=== PATIENT | female | born 1965 | race African-American/Black ===

== ENCOUNTER 2017-08-20 12:37 | Observation (INO) | payer MEDICARE, MEDICAID ==
[2017-08-20] MEDS ORDERED: diphenhydrAMINE 50 MG/ML VIAL ONE (13:13)
[2017-08-20] MEDS ORDERED: Metoclopramide HCl 10 MG/2 ML VIAL ONE (13:13)
[2017-08-20 13:48] LABS: Anion Gap 14 mmol/L (10-20); BUN (Urea Nitrogen) 16 mg/dL (7.0-18.7); Calc. Creatinine Clearance 0 mL/min (70-130); Carbon Dioxide 24 mmol/L (22-29); Chloride 109 mmol/L (98-107); Estimated GFR-MDRD 65
[2017-08-20 14:19] LABS: #Basophils 0.1 thou/uL (0.0-0.2); #Eosinphils 0.1 thou/uL (0.0-0.7); #Lymphocytes 0.8 thou/uL (1.20-3.40); #Monocytes 0.4 thou/uL (0.11-0.59); #Neutrophils 2.6 thou/uL (1.40-6.50); %Basophils 2.7 % (0.0-1.0); %Eosinophils 1.4 % (0.0-10.0); %Lymphocytes 19.5 % (21.0-51.0); %Monocytes 10.6 % (0.0-10.0); Hematocrit 31.6 % (36.0-47.0); Mean Platelet Volume 10.4 fL (7.4-10.4); Red Blood Cell (RBC) Count 3.98 mill/uL (4.20-5.40); White Blood Cell (WBC) Count 3.9 thou/uL (4.8-10.8)
[2017-08-20 14:20] LABS: Anisocytosis SLIGHT = 6-15 cells (100X) (0-5/hpf); Hypochromia SLIGHT = 6-15 cells (100X) (0-5/hpf); Microcytosis SLIGHT = 6-15 cells (100X) (0-5/hpf); Ovalocytes SLIGHT = 2-5 cells (100X) (0-1/hpf); Target Cells SLIGHT = 2-5 cells (100X) (0-1/hpf)
[2017-08-20] MEDS ORDERED: Lorazepam 2 MG/ML VIAL ONE (14:51)
--- NOTE | 2017-08-20 15:02 | CT ---
CT HEAD NONCONTRAST: History: Headache for one month. Comparison: 03-05-07 FINDINGS: Subtle hyperdensity and thickening involves the posterior falx and the tentorium. There is no mass ef fect or shift of midline structures. Ventricles appear normal in size, shape, and position. Visualize d paranasal sinuses remain well aerated. IMPRESSION: 1. Hyperdensity involving the tentorium and posterior falx. A small amount of subdural hemorrhage cou ld cause this appearance, although other causes are favored, possibly related to inflammation. There is no mass effect. 2. Please consider short term follow up with MRI of the brain for better characterization. Findings were called to Dr. Hough in the [facility] at 1349 hours. Code CR POS: [facility]
[2017-08-20 15:14] LABS: Bilirubin Negative (Negative); Blood, Urine Negative (Negative); Glucose, Urine (Dipstick) Negative (Negative); Ketone, Urine Negative (Negative); Nitrite Negative (Negative); Protein, Urine (Dipstick) Negative (Neg-Trace); Urobilinogen 0.2 mg/dL (0.2-1.0)
--- NOTE | 2017-08-20 16:51 | MRI ---
MRI OF BRAIN PERFORMED WITH AND WITHOUT CONTRAST ENHANCEMENT 08/20/17 HISTORY: Headache. Hyperdense appearing tentorium and posterior falx noted on CT raising the possibility of some subdura l blood. Ventricular and cisternal system is within normal limits. There is some minimal areas of T2 and FLAIR hyperintensity within the white matter which were probably age related. On a gradient sequence, I do not see any evidence for hemorrhage. Postcontrast images show no abnorma l enhancement in the region of the tentorium. Diffusion weighted sequence shows no signs of any acute infarct. Some mucosal change within the ethmoid air cells and mastoid air cells. IMPRESSION: No acute intracranial abnormalities. POS: [facility]
[2017-08-20] MEDS ORDERED: Metoclopramide HCl 10 MG/2 ML VIAL IVP PRN (17:47)
[2017-08-20] MEDS ORDERED: Dexamethasone 10 MG in Sodium Chloride 0.9% 50 ML IVPB SCH (18:00)
--- NOTE | 2017-08-20 18:46 | HP ---
HISTORY OF PRESENT ILLNESS: Mrs. Vasquez is a 51-year-old black woman. She came to this facility fro [facility] ER where she was evaluated for severe migraine which she has been having for over last wed or so. She was seen by her neurologist as an outpatient, did not respond to therapy and her condi tion has been getting worse. She has been admitted for management. PAST MEDICAL HISTORY: Remarkable for migraine. She has been having migraine for a long time. She i s also known to have any history of lupus and she has end-stage renal disease. She is status post ki dney transplant. She denies diabetes, denies heart disease, denies lung disease, denies hypertension . PAST SURGICAL HISTORY: Remarkable for dialysis access placement, kidney transplant and also she had thymectomy due to myasthenia gravis. She currently is free of myasthenia gravis. ALLERGIES: She has allergy to SULFA, FLAGYL, Tramadol and GoLYTELY. SOCIAL HISTORY: She denies any history of cigarette smoking. Denies ETOH abuse. Denies drug abuse. FAMILY HISTORY: Reviewed and is not contributory. MEDICATIONS: Prior to admission, she was on Ambien, tacrolimus, CellCept and calcitriol. REVIEW OF SYSTEMS: Constitutional: She denies any fever. Denies any weakness. HEENT: She has bee n having severe migraine as mentioned earlier. Denies ocular pain. Denies sore throat. Denies rhin orrhea. Denies epistaxis. Neck: No neck pain, no neck stiffness. Cardiovascular: No shortness of breath. No chest pain. Pulmonary: No coughing. Gastrointestinal: Admits to nausea, vomiting, no diarrhea, no abdominal pain. Genitourinary: No dysuria, no hematuria. Endocrinology: No heat or c old intolerance. No polyuria, polydipsia or polyphagia. Musculoskeletal: Denies arthralgia. Hemat ology: No abnormal bleeding, no ecchymosis. Lymphatics: No palpable lymphadenopathy, no painful ly mphadenopathy. Skin: No rash, no itching. Allergies: No hayfever. Neurological: No seizure. Ps ychiatric: No anxiety. No depression. PHYSICAL EXAMINATION: GENERAL: At the current time, she is alert, oriented, in no acute distress. LATEST VITAL SIGNS: Show a temperature of 98.4, pulse rate 78, respiratory rate is 16, blood pressur e 110/43. HEENT: Her head is normocephalic and atraumatic. Both her pupils are equal, reactive. Ears and nos e normal. Oral mucosa is moist. Pharyngeal area is clear with no exudate, no hyperemia. NECK: Supple. There is no distention of the jugular vein. No lymphadenopathy felt. Thyroid gland not palpable. There is no carotid bruit. CHEST: Symmetrical with regular S1, S2. LUNGS: Clear. ABDOMEN: Soft, bowel sounds heard. We could not appreciate any organomegaly. There is no focal are a of tenderness. EXTREMITIES: Limbs showed no edema. NEUROLOGIC: She moves all extremities. LABORATORY DATA: Her CBC done earlier showed WBC of 3.9, hemoglobin of 9.9, hematocrit of 31.6, MCV of 79.3, platelet 114. Chemistry and electrolytes show sodium of 143, potassium of 4.3, chloride 109 , CO2 of 24, BUN 16, creatinine 1.08, glucose 93, calcium 9.0. Urinalysis shows specific gravity of 1.015, pH of 6, otherwise negative. Head CT and MRI done earlier reported to show no acute intracran ial abnormality. Further MRI/MRA shows no acute intracranial abnormality. Head CT was reported to s how hypodensity involving the tentorium and posterior falx and MRI was suggested. ASSESSMENT AND PLAN: This is a 51-year-old black woman with a history of lupus, status post kidney t ransplant, past history of myasthenia gravis, status post thymectomy, who was admitted with severe mi graine. Please see orders.
[2017-08-20] MEDS: Meperidine HCl/PF 25 MG/ML VIAL SLOW IVP SCH (20:31)
[2017-08-20] MEDS: diphenhydrAMINE 50 MG/ML VIAL IVP SCH (20:38)
[2017-08-20] MEDS: Mycophenolate 250 MG CAP PO SCH (20:41)
[2017-08-20] MEDS: Tacrolimus 1 MG CAP PO SCH (20:42)
[2017-08-20] MEDS ORDERED: Zolpidem Tartrate 5 MG TAB PO SCH (21:00)
[2017-08-21] MEDS: SUMAtriptan Succinate 6 MG/0.5 ML VIAL SC PRN ×3 (00:33→05:12)
[2017-08-21] MEDS ORDERED: Morphine PF 1 MG/ML SYR IV PRN (01:06)
[2017-08-21] MEDS: Tacrolimus 1 MG CAP PO SCH (08:43)
[2017-08-21] MEDS: Mycophenolate 250 MG CAP PO SCH (08:43)
[2017-08-21] MEDS: diphenhydrAMINE 50 MG/ML VIAL IVP SCH ×4 (08:45→18:07)
[2017-08-21] MEDS: Meperidine HCl/PF 25 MG/ML VIAL SLOW IVP SCH ×3 (08:47→18:07)
[2017-08-21] MEDS ORDERED: Calcitriol 0.25 MCG CAP PO SCH (09:00)
[2017-08-21] MEDS ORDERED: Fioricet 325/50/40 mg Tablet PO PRN (09:49)
[2017-08-21] MEDS ORDERED: Acetaminophen/Codeine 30-300mg Tablet PO PRN (09:50)
--- NOTE | 2017-08-21 11:51 | PDOC.PN ---
- Subjective Encounter Start Date: 08/21/17 Encounter Start Time: 11:00 -: Feels somewhat better. - Objective Vital Signs & Weight: Vital Signs (12 hours) Temp Pulse Resp BP Pulse Ox 08/21/17 08:45 99.2 F 98 20 08/21/17 08:00 99.2 F 98 20 140/67 97 08/21/17 05:16 87 158/67 H 08/21/17 03:45 98.9 F 92 16 183/72 H 96 Weight Weight 169 lb 11.213 oz Result Diagrams: 08/20/17 13:35 08/20/17 13:25 Phys Exam - Physical Examination HEENT: PERRLA, moist MMs (+poor denture.) Neck: no JVD Respiratory: clear to auscultation bilateral Cardiovascular: RRR Gastrointestinal: soft Musculoskeletal: no edema Neurological: moves all 4 limbs Psychiatric: A&O x 3 Dx/Plan (1) Migraine Code(s): G43.909 - MIGRAINE, UNSP, NOT INTRACTABLE, WITHOUT STATUS MIGRAINOSUS Status: Acute Comment: continue current therapy. (2) S/P kidney transplant Code(s): Z94.0 - KIDNEY TRANSPLANT STATUS Status: Acute Plan: monitor renal function. Comment: renal function stable. (3) History of lupus Code(s): Z87.39 - PERSONAL HISTORY OF DISEASES OF THE MS SYS AND CONN TISS Status: Acute - Plan -: Continue current therapy. -: Neurology to see when available. -: ?lupus cerebritis -: Check OKSANA, c3, c4 * .
[2017-08-21 15:58] VITALS: BP 106/56; TEMP 98.7
--- NOTE | 2017-08-21 16:37 | PDOC.EVN ---
Event Note - Event Note Event Note: Patient is feeling much better...C3, C4 ok. she wants to go home. To follow up with neurologist.
--- NOTE | 2017-08-21 17:01 | DIS ---
DATE OF ADMISSION: 08/20/2017 DATE OF DISCHARGE: 08/21/2017 ADMITTING DIAGNOSIS: Severe migraine headache. SECONDARY DIAGNOSES: Status post kidney transplant, history of lupus, history of myasthenia gravis. DISCHARGE DIAGNOSES: As above. CONSULTANTS: None. PROCEDURE: MRI of the brain, CT of the brain. COURSE OF HOSPITALIZATION: Uncomplicated. Responded well to management. The patient is clinically stable at this time being discharged home. DISCHARGE MEDICATIONS: Please see discharge medication reconciliation sheet. For today's progress note, refer to the patient's medical record progress note section. Currently, t he patient is saying she is feeling much better. She wants to go home. She is to follow up with her neurologist as an outpatient.
[2017-08-24 09:20] LABS: U1RNP/snRNP IGG Autoabs <0.2 AI (0.0-0.9)
== END 2017-08-21 18:12 | disposition home or self-care (01) ==
LOC: SCSER 12:37 → 2SE 14:31
PROVIDERS: ADMIT Hospitalist; ATTEND Hospitalist
DX: G43.709 Chronic migraine without aura, not intractable, without status migrainosus (principal); M32.9 Systemic lupus erythematosus, unspecified; N18.6 End stage renal disease; Z88.2 Allergy status to sulfonamides; Z88.8 Allergy status to other drugs, medicaments and biological substances; Z88.5 Allergy status to narcotic agent; Z88.6 Allergy status to analgesic agent; Z94.0 Kidney transplant status; Z90.89 Acquired absence of other organs; Z99.2 Dependence on renal dialysis; Z91.041 Radiographic dye allergy status
CPT/HCPCS: 70450; 70553; 80048; 81003; 85025; 86038; 86160 ×2; 96361; 96372; 96374; 96375 ×3; 96376 ×2; 99285; G0378; 36415; J1100; J1200; J2060; J2175; J2274; J2765; J3030; J7050; J7507; J7517